=== PATIENT | male | born 1945 | race Caucasian/White ===

== ENCOUNTER 2022-03-31 10:13 | Day surgery (SDC) | payer MEDICARE, OTHER ==
[2022-03-31] VITALS (10 sets, daily range): BP systolic 102–134; BP diastolic 55–69
[~2022-03-31] VITALS: Ht 165.1 cm; Wt 69.1 kg
[2022-03-31] MEDS ORDERED: normal saline 1000ml 1,000 ML IV PRN (10:30)
[2022-03-31] MEDS ORDERED: ACET-1008 PO (10:56)
[2022-03-31 10:58] LABS: BASOPHILS # (AUTO) 0.1 X10'3 (0-0.2); BASOPHILS % (AUTO) 0.6 % (0-1); EOSINOPHILS # (AUTO) 0.1 X10'3 (0-0.9); EOSINOPHILS % (AUTO) 1.1 % (0-6); HEMATOCRIT 37.5 % (42.0-52.0); HEMOGLOBIN 12.2 g/dl (14.0-17.9); LYMPHOCYTES # (AUTO) 0.8 X10'3 (1.1-4.8); LYMPHOCYTES % (AUTO) 7.2 % (21-51); MEAN CORPUSCULAR HEMOGLOBIN 26.8 PG (27.0-31.0); MEAN CORPUSCULAR HGB CONC 32.7 g/dL (33.0-36.5); MEAN PLATELET VOLUME 6.6 FL (7.4-10.4); MONOCYTES # (AUTO) 0.9 X10'3 (0-0.9); MONOCYTES % (AUTO) 8.2 % (2-12); NEUTROPHILS # (AUTO) 9.2 X10'3 (1.8-7.7); NEUTROPHILS % (AUTO) 82.9 % (42-75); PLATELET COUNT 449 X10'3 (140-440); RED BLOOD COUNT 4.57 X10'6 (4.70-6.10); RED CELL DISTRIBUTION WIDTH 13.9 % (11.5-14.5); WHITE BLOOD COUNT 11.2 X10'3 (4.5-11.0)
[2022-03-31] MEDS ORDERED: FENTANYL CITRATE/PF 50 MCG/1 ML VIAL ONE (15:29)
[2022-03-31] MEDS ORDERED: MIDAZolam 1 MG/ML 5ML VIAL ONE (15:30)
[2022-03-31] MEDS ORDERED: diphenhydrAMINE 50 mg/ml inj ONE (15:30)
[2022-03-31] MEDS ORDERED: LIDOcaine Viscous 15ml cup ONE (16:08)
== END 2022-03-31 18:20 | disposition home or self-care (01) ==
LOC: SSTAY O 10:13
PROVIDERS: ATTEND Radiology Vascular & Interventional Radiology
DX: R13.10 Dysphagia, unspecified (principal); Z79.899 Other long term (current) drug therapy
CPT/HCPCS: 36415; 43246; 85025; B4087; G0500; J2250; J3010; J7030; Z7512; 99152; 99153; A4620; A6258; A6449; J1200